=== PATIENT | male | born 1995 | race Caucasian/White ===

== ENCOUNTER 2017-12-27 12:07 | Emergency (ER) | payer OTHER ==
[2017-12-27 12:37] VITALS: BP 135/78
[2017-12-27] MEDS ORDERED: XYLOCAINE 1% 20 mL ONE (13:38)
[2017-12-27] MEDS ORDERED: KEFLEX PO ONE (13:58)
[2017-12-27] MEDS ORDERED: BOOSTRIX IM ONE (14:17)
--- NOTE | 2017-12-27 14:22 | XRay Report ---
RIGHT KNEE, 3 views: History: Foreign body, injury. The bony architecture is intact without evidence of fracture or dislocation. An approximate 6 cm metallic foreign body consistent with a nail is noted in the medial soft tissues just proximal to the knee IMPRESSION: Foreign body as described. No bony injury is detected.
--- NOTE | 2017-12-27 14:50 | Emergency Department Report ---
ED General Adult HPI - General Chief complaint: Extremity Injury, Lower Stated complaint: NAIL IN RIGHT LEG Time Seen by Provider: 12/27/17 13:55 Source: patient Mode of arrival: Wheelchair Limitations: Language Barrier - History of Present Illness Initial comments: Patient is status post an accidental self-inflicted nail gun wound to the right distal thigh above the knee. The nail is still in situ. The injury occurred at 11:00. Patient states that he can move his knee without difficulty. The history is obtained in Persian. Patient states that the nail is "in the meat". He states he does not feel it actually went into his knee. He denies any focal weakness or numbness distally. He complains of mild pain only. He was able to ambulate without difficulty. -: hour(s) Location: right, lower extremity Radiation: non-radiation Quality: aching Consistency: intermittent Improves with: none Worsens with: none Associated Symptoms: denies other symptoms - Related Data Previous Rx's Medication Instructions Recorded Last Taken Type Cephalexin [Keflex] 500 mg PO Q6HR #20 capsule 12/27/17 Unknown Rx Allergies Allergy/AdvReac Type Severity Reaction Status Date / Time No Known Allergies Allergy Unverified 12/27/17 12:36 ED Review of Systems ROS: Stated complaint: NAIL IN RIGHT LEG Other details as noted in HPI Comment: All other systems reviewed and negative ED Past Medical Hx - Past Medical History Previous Medical History?: No - Surgical History Past Surgical History?: No - Social History Smoking Status: Current Every Day Smoker Substance Use Type: None - Medications Home Medications: Home Medications Medication Instructions Recorded Confirmed Last Taken Type Cephalexin [Keflex] 500 mg PO Q6HR #20 capsule 12/27/17 Unknown Rx ED Physical Exam - General General appearance: alert, in no apparent distress - Head Head exam: Present: atraumatic, normocephalic - Eye Eye exam: Present: normal appearance - ENT ENT exam: Present: mucous membranes moist - Neck Neck exam: Present: normal inspection - Respiratory Respiratory exam: Present: normal lung sounds bilaterally - Extremities Exam Extremities exam: Present: other (there is a nail which is palpable in the subcutaneous tissue of the distal right thigh anteriorly. There is full range of motion of the knee. There is no suprapatellar fluid which is palpable. The knee is stable to maneuvers. Range of motion is without pain. Neurovascular exam distally is intact.) - Neurological Exam Neurological exam: Present: CN II-XII intact. Absent: motor sensory deficit - Psychiatric Psychiatric exam: Present: normal affect, normal mood - Skin Skin exam: Present: dry, other (foreign body as above described). Absent: warm ED Course Vital Signs 12/27/17 12:34 Temperature 98 F Pulse Rate 97 H Respiratory 16 Rate Blood Pressure 135/78 O2 Sat by Pulse 97 Oximetry - Reevaluation(s) Reevaluation #1: The wound was anesthetized with 5 mL of 1% lidocaine or so. Betadine prep. A plier was used to gently extract the foreign body. There was mild bleeding. Postprocedure there was full range of motion of the knee and no evidence of suprapatellar effusion. There was no pain on range of motion either. 12/27/17 14:48 Critical care attestation.: If time is entered above; I have spent that time in minutes in the direct care of this critically ill patient, excluding procedure time. ED Disposition Clinical Impression: Foreign body (FB) in soft tissue Disposition: DC-01 TO HOME OR SELFCARE Is pt being admited?: No Does the pt Need Aspirin: No Condition: Stable Instructions: Puncture Wound (ED) Additional Instructions: Observe for any swelling whatsoever of the knee. If this occurs return to the emergency department for further evaluation. Follow-up with orthopedic doctor. Rx as directed. Prescriptions: Cephalexin [Keflex] 500 mg PO Q6HR #20 capsule Referrals: TY SOLORIO MD [Staff Physician] - 24 Hours Time of Disposition: 14:00
== END 2017-12-27 15:15 | disposition home or self-care (01) ==
LOC: ED 12:07
DX: S81.841A Puncture wound with foreign body, right lower leg, initial encounter (principal); F17.200 Nicotine dependence, unspecified, uncomplicated; W45.0XXA Nail entering through skin, initial encounter; Y93.89 Activity, other specified; Y92.89 Other specified places as the place of occurrence of the external cause; Y99.8 Other external cause status
CPT/HCPCS: 90471; 90472; 90715; 99283